=== PATIENT | male | born 1965 | race Caucasian/White ===

== ENCOUNTER 2024-01-06 09:22 | Emergency (ER) | payer MEDICARE, SELFPAY ==
[2024-01-06 09:33] VITALS: BP 154/95; BMI 36.8
[2024-01-06 09:53] LABS: % Basophils 0.9 % (0-2); % Eosinophils 6.5 % (0-6); % Immature Granulocytes 0.3 % (0-0.5); % Lymphocytes 30.5 % (20.5-51.1); % Monocytes 11.2 % (1.7-9.3); % Neutrophils 50.6 % (42.2-75.2); Absolute Basophils 0.1 10^3/uL (0-0.2); Absolute Eosinophils 0.4 10^3/uL (0-0.7); Absolute Lymphocytes 1.9 10^3/uL (1.2-3.4); Absolute Monocytes 0.7 10^3/uL (0.1-0.6); Absolute Neutrophils 3.2 10^3/uL (1.4-6.5); Hematocrit 44.4 % (39.0-52.0); Hemoglobin 15.9 g/dL (13.0-18.0); Mean Corp Hgb Conc. 35.8 g/dL (33.0-37.0); Mean Corpuscular Hgb 30.2 pg (27.0-31.0); Mean Corpuscular Volume 84.3 fL (80.0-94.0); Mean Platelet Volume 9.9 fL (7.4-10.4); Nucleated Red Blood Cells % 0 % (-); Platelet Count 244 10^3/uL (130-400); Red Blood Cell Count 5.27 10^6/uL (4.70-6.10); Red Cell Dist. Width 12.5 % (11.5-14.5); White Blood Cell Count 6.3 10^3/uL (4.8-10.8)
[2024-01-06] MEDS: TYLENOL 1000 MG PO (09:55)
[2024-01-06 10:00] VITALS: BP 153/85
--- NOTE | 2024-01-06 10:16 | ED.GENMED ---
History of Present Illness
General
Chief Complaint: Chest Pain
Source: patient
Exam Limitations: none
Time Seen by Provider: 01/06/24 09:31
Nursing documentation reviewed up to this point in time: agreed with
History of Present Illness
History of Present Illness:
58-year-old male presents with chest pain onset earlier this morning after eating breakfast, was driving to [place], described as a sharp pressure in his left upper chest to go to his left arm no nausea vomiting or diaphoresis did not go to his back
nor jaw, he had a cardiac catheterization 2 weeks ago at [facility] with her [facility] cardiology tells me it was normal, he has had aortic valve repair and aneurysm repair by Dr. Anton [facility] previously, was given
nitroglycerin today did help with symptoms with minimal headache,
Past History
Past History
ED Past Medical History: Other (Hypertension, bicuspid aortic valve, anxiety, abdominal aortic aneurysm); Negative CAD, Cancer or CHF
ED Past Surgical History: Cardiac
Social History
Tobacco: Non-smoker
Alcohol: None
Drug: None
Personal: Other ()
Living: with family
Employment: Employed
Family History
Family History: CAD
Review of Systems
Review of Systems
All Other Systems: ROS reviewed and negative except as documented in HPI and ROS
Constitutional: Denies fever or fatigue
Respiratory: Reports trouble breathing; Denies cough
Cardiac: Reports chest pain; Denies diaphoresis, palpitations or syncope
ABD/GI: Reports no symptoms
Phy Exam
Physical Exam
Physical Exam:
Physical Exam
General: no apparent distress, not acutely ill
Neck: No jaundice
Heart: s1/s2 regular rate and rhythm, no murmur. equal radial pulses.
Lungs: no acute respiratory distress. clear bilaterally
Abdomen: Nontender
Neuro: alert and oriented. no focal neurological deficits
Skin: no rash
Psychiatric: well kept. interactive and cooperative
Extremities: no edema.
Scores
Heart Score for Chest Pain Patients
STEMI patient?: No
History: Moderately Suspicious
ECG: Normal
Age: >45 - <65 years
Risk Factors: 1 or 2 Risk Factors
Troponin: </= Normal Limit
Heart Score for Chest Pain Patients: 3
Heart Score Risk: 2.5% MACE over next 6 weeks
Course
Orders/Labs/Results
Orders:
Orders
01/06/24 09:24
Electrocardiogram (*1) Urgent
Reason for Study: Chest Pain
Cardiac Monitoring- Treatment ONCE
EKG- Treatment ONCE
IV Insert/Care/Rem.- Treatment PRN
O2 Therapy [RESP] Urgent
Titrate/Wean O2 to maintain O2 sat greater than (%): 90
Special Instructions: Maintain sats >/=90%
Pulse Ox/spot Check [RESP] Urgent
Quantity: 1
Special Instructions: ON ROOM AIR
01/06/24 09:43
Complete Blood Count/With Diff Urgent
Comprehensive Metabolic Panel Urgent
Pro-BNP [NT-proBNP] Urgent
Troponin I Urgent
01/06/24 09:50
Acetaminophen [Tylenol] 1,000 mg PO NOW STA
01/06/24 09:51
CR Chest Portable - 1 View Urgent
Comment:
Reason For Exam: sob
Reason Study Needs to be Portable: Patient Unstable
01/06/24 10:51
CT Chest Pe Study Urgent
Comment:
Reason For Exam: sharp chest pain
01/06/24 12:58
Troponin I Urgent
Abnormal Lab Results
01/06/24
09:43
Absolute Monos (auto) 0.7 H 10^3/uL
(0.1-0.6)
Monocytes % 11.2 H %
(1.7-9.3)
Eosinophils % 6.5 H %
(0-6)
Glucose 110 H mg/dl
(70-99)
Calcium 10.4 H mg/dl
(8.4-10.2)
Alkaline Phosphatase 140 H U/L
(38-126)
01/06/24 09:43
01/06/24 09:43
Vital Signs
Initial and Last Documented VS:
Initial Vital Signs
Temp Pulse Resp BP Pulse Ox
97.8 F 86 23 154/95 97
01/06/24 09:33 01/06/24 09:33 01/06/24 09:33 01/06/24 09:33 01/06/24 09:33
Last Documented Vital Signs
Temp Pulse Resp BP Pulse Ox
97.8 F 97 18 157/80 95
01/06/24 09:33 01/06/24 11:05 01/06/24 11:05 01/06/24 11:22 01/06/24 11:05
MDM/Problems Addressed
Differential Diagnosis Includes:
Heart failure ACS dissection pneumonia PE reflux
MDM/Problems Addressed:
Chest pain
Chronic conditions affecting care:
Aortic valve disease aneurysm repair
Acute Exacerbation and/or Progression of Chronic Illness:
Aortic valve
*Radiology
Radiology exam reviewed: radiology read reviewed
*Pulse Oximetry
Patient hypoxic: no
*EKG
Interpreted by ED Provider?: Yes
Interpretation: normal
Comparison EKG: no comparison EKG present
Heart Rate: 78
Rate: normal
Rhythm: sinus
Ischemia: non-specific ST changes
*Emission Specialist Interpretation
Rate: normal
Interpretation: normal
Heart Rate: 78
Rhythm: sinus
*Critical Care Note
Total Time (30-74mins, 75-104mins- exclusive of procedures): Not Applicable
Update Note
Update Note:
145
Patient feeling better [address] chest with no dissection or PE, chest x-ray with no pneumothorax,
ED Attending Note
-
Portions of this chart may have been created with voice recognition software.� Occasional wrong word or��sound alike� substitutions may have occurred due to the inherent limitations of voice recognition software.
Discharge Plan
Departure
Patient Disposition: Home (Routine Discharge)
Date of Disposition: 01/06/24
Time of Disposition: 13:42
Patient with high blood pressure during this ER visit?: No
Condition: Good
Covid-19: Not Applicable
Discharge Problem:
Chest pain
Instructions: Chest Pain NON-[facility]P General Repairer Follow Up
Prescriptions:
No Action
lamotrigine [Lamictal] 150 MG tablet
150 mg PO HS
alprazolam 0.5 MG tablet
0.5 mg PO Q6HPRN
candesartan [Atacand] 32 MG tablet
32 mg PO DAILY
zolpidem [Ambien] 10 MG tablet
6.25 mg PO PRN PRN (Reason: insomnia)
Cymbalta 90 MG
60 mg PO DAILY
tramadol 50 MG tablet
50 mg PO TID PRN (Reason: pain)
methocarbamol [Robaxin-750] 750 MG tablet
750 mg PO Q8H PRN (Reason: muscle spasms)
Referrals:
Chito Harrington MD [Family Provider] - Next open appointment
Jeacnarlos Keller MD [Active] - Next open appointment
Interventions
Interventions:
*Risk Screen - Suicide Last Done: 01/06/24 09:33
*General Assessment Last Done: 01/06/24 09:33
*Neglect/Abuse Screening Last Done: 01/06/24 09:33
ED- Fall Risk Assessment Last Done: 01/06/24 10:22
ED- Cardiac Assessment Last Done: 01/06/24 10:22
Discharge Date and Time
Print Language: TELUGU
[2024-01-06 10:21] LABS: ALT (SGPT) 37 U/L (0-50); AST (SGOT) 30 U/L (17-59); Albumin 4.6 g/dl (3.5-5.0); Alkaline Phosphatase 140 U/L (38-126); Blood Urea Nitrogen 13 mg/dl (9-20); Calcium 10.4 mg/dl (8.4-10.2); Carbon Dioxide 23 mmol/L (22-30); Chloride 102 mmol/L (98-107); Estimated Creatinine Clearance > 125 ml/min; Glucose 110 mg/dl (70-99); Potassium 4.3 mmol/L (3.5-5.1); Sodium 138 mmol/L (135-145); Total Bilirubin 0.3 mg/dl (0.2-1.3); Total Protein 7.3 g/dl (6.3-8.2); eGFR > 60.00
[2024-01-06 10:22] LABS: NT-proBNP < 20.0 pg/ml; Troponin I < 0.012 ng/ml
[2024-01-06 11:00] VITALS: BP 150/85
[2024-01-06 11:22] VITALS: BP 157/80
[2024-01-06 13:31] LABS: Troponin I < 0.012 ng/ml
[2024-01-06 13:53] VITALS: BP 151/70
== END 2024-01-06 14:07 | disposition home or self-care (01) ==
LOC: EMR 09:22
PROVIDERS: EMERGENCY PHYSICIAN Emergency Medicine; FAMILY PHYSICIAN Family Medicine
DX: R07.89 Other chest pain (principal); R06.02 Shortness of breath; R51.9 Headache, unspecified; M79.602 Pain in left arm; Z98.890 Other specified postprocedural states; I71.40 Abdominal aortic aneurysm, without rupture, unspecified; I10 Essential (primary) hypertension; F41.9 Anxiety disorder, unspecified; Q23.81 Bicuspid aortic valve; F32.A Depression, unspecified
CPT/HCPCS: 99285; 94760; 71045; 71275; 80053; 83880; 84484; 85025; 93005; Q9967